=== PATIENT | male | born 1995 | race Caucasian/White ===

== ENCOUNTER 2020-04-30 12:57 | Day surgery (SDC) | payer BC, SELFPAY ==
--- NOTE | 2020-04-14 11:16 | EKG12_ITS ---
Test Reason : PRE OP Blood Pressure : / mmHG Vent. Rate : 064 BPM Atrial Rate : 064 BPM P-R Int : 126 ms QRS Dur : 092 ms QT Int : 372 ms P-R-T Axes : 074 065 053 degrees QTc Int : 383 ms Normal sinus rhythm with sinus arrhythmia Normal ECG Confirmed by BISMARK SILVERIO, BRYANT ([id number]), editor magazine [employer] ([id number]) on 04/17/2020 1:35:07 PM Referred By: FELISA Confirmed By:BRYANT SOFIA MD
[2020-04-14 11:34] LABS: Hemoglobin 16.2 g/dL (13.0-16.5); Mean Corp Hgb Conc 32.4 g/dL (32-36); Mean Corpuscular Hgb 28.9 pg (27.0-32.0); Mean Corpuscular Volume 89.3 fL (80-94); Mean Platelet Vol. 10.5 fl (6.2-12.0); Platelet Count 229 K/mm3 (150-450); RBC Distribution Width CV 12.9 % (11.6-14.6); RBC Distribution Width SD 42.2 fl (35.1-43.9); White Blood Count 6.4 K/mm3 (4.4-11.0)
[2020-04-14 12:04] LABS: Anion Gap 4 (5-15); BUN 12 mg/dL (7-18); BUN/Creat Ratio 12.2 RATIO (10-20); Chloride 108 mmol/L (98-107); Creatinine, Serum 0.98 mg/dL (0.70-1.30); EST Glomerular Filtration Rate 98 mL/min (>60); Est Glom Filt Rate - Afr Amer 118 mL/min (>60); Glucose 96 mg/dL (74-106); Potassium 3.9 mmol/L (3.5-5.1); Sodium Level 141 mmol/L (136-145)
[2020-04-29 12:58] LABS: Probe Check PASS; Specimen Processing Control PASS
[2020-04-30] VITALS (8 sets, daily range): BP systolic 120–135; BP diastolic 73–82; PULSE 69–122; RESP 16–18; TEMP 36.6–37; O2SAT 97–100; BMI 24.0
[2020-04-30] MEDS: Lactated Ringers 1,000 ML 100 ML IV (13:27)
[2020-04-30] MEDS: Cefazolin 2 GM in 0.9% Normal Saline 100 ML IV (14:18)
[2020-04-30] MEDS: Bupiv/Epi 0.5% Mpf 30 ML Vial (14:42)
[2020-04-30] MEDS: Epinephrine (1 mg/ml) 1 MG/ML VIAL (14:42)
--- NOTE | 2020-04-30 15:39 | OP.PCM_ITS ---
Report of Operation Date of Procedure: 04/30/20 Pre-Operative Diagnosis: Right shoulder pain secondary to torn anterior labrum and subacromial impingement syndrome Post-Operative Diagnosis: same Surgery/Procedure Performed:: Right shoulder arthroscopy with revision labral repair and SAD turfgrass management professor: Mookie Wagner Type of Anesthesia:: General/Regional Anesthesiologist: Zach Paul - Admit VTE Documentation VTE Present on Admission: No VTE Mechan Device Prophylaxis: SCD's, Thigh High AURELIA Hose VTE Pharm Prophylaxis ordered?: No Reason prophylaxis not ordered:: Treatment Not Indicated
== END 2020-04-30 17:40 | disposition home or self-care (01) ==
LOC: SDC 13:01 → AC 13:02
PROVIDERS: Anesthesiology; PCP Family Medicine; Referring Provider Orthopaedic Surgery; Visit Provider Orthopaedic Surgery
PROC: (CPT 29806; principal; 2020-04-30 14:40)
DX: S43.491A Other sprain of right shoulder joint, initial encounter (principal); M75.41 Impingement syndrome of right shoulder; K21.9 Gastro-esophageal reflux disease without esophagitis; F17.200 Nicotine dependence, unspecified, uncomplicated; Z11.59 Encounter for screening for other viral diseases; Z79.1 Long term (current) use of non-steroidal anti-inflammatories (NSAID); Z79.891 Long term (current) use of opiate analgesic; X58.XXXA Exposure to other specified factors, initial encounter; Y93.89 Activity, other specified; Y92.89 Other specified places as the place of occurrence of the external cause; Y99.8 Other external cause status
CPT/HCPCS: 01630; 29807; 29822; 36415; 80048; 85027; 87635; 93005; G2023; J7120; J2405; U0003